=== PATIENT | female | born 1975 | race Caucasian/White ===

== ENCOUNTER 2016-12-28 07:29 | Day surgery (SDC) | payer OTHER ==
[2016-12-28] MEDS ORDERED: METHYLENE BLUE 1% 1ML VIAL SUB-Q ONE (07:30)
[2016-12-28] MEDS ORDERED: LACTATED RINGERS 1,000 ML ONE ×2 (07:56→14:41)
[2016-12-28] MEDS ORDERED: IV START KIT ONE (07:57)
[2016-12-28] MEDS ORDERED: FENTANYL 100 MCG/2 ML VIAL ONE (09:59)
[2016-12-28] MEDS ORDERED: MIDAZOLAM HCL 1 MG/ML 2ML VIAL ONE (09:59)
--- NOTE | 2016-12-28 10:10 | US ---
GUIDANCE NEEDLE PLACMNT COMPARISON: Left breast ultrasound, 12/23/2016 HISTORY: Painful lymph node lateral margin of the left breast at 3:00 status post biopsy with marker placement 07/17/2015. Procedure: The risks and benefits were explained informed consent was obtained. The skin of the left breast was sterilized with ChloraPrep. Lidocaine 1% was used for local anesthetic. Under ultrasound guidance, a 5 cm Kopan's needle was advanced toward the lesion. Once the needle was adjacent to the lesion, methylene blue dye was injected, followed by deployment of the wire. IMPRESSION: 1. Digital mammography guided wire localization of suspicious lesion in the left breast.
[2016-12-28] MEDS ORDERED: PROPOFOL 40 ML IV ONE (10:30)
[2016-12-28] MEDS ORDERED: KETAMINE HCL UD SYRINGE 100 MG/2 ML IV ONE (10:30)
[2016-12-28] MEDS ORDERED: LIDOCAINE 1% (PRES FREE) 30 ML VIAL ONE (11:10)
[2016-12-28] MEDS ORDERED: KETOROLAC TROMETHAMINE 30 MG/ML 1 ML VIAL ONE (12:02)
[2016-12-28] MEDS ORDERED: DEXAMETHASONE SOD PHOS 4 MG/1 ML VIAL ONE (12:02)
[2016-12-28] MEDS ORDERED: ONDANSETRON 4 MG/2ML 2 ML VIAL ONE ×2 (12:02→14:18)
[2016-12-28] MEDS ORDERED: PROPOFOL 20 ML IV ONE (12:05)
--- NOTE | 2016-12-28 12:41 | PCMBPN ---
Brief Post Op Note: Date of Procedure: 12/28/16 Start Time: Preoperative Diagnosis: 1. LEft breast pain and mass Postoperative Diagnosis: 1. Same Procedure: Excisional biopsy left breast mass Surgeon: Virginia Barahona MD Assist:Perri Aviles Anesthesia: MAC w/ local Findings: see dictation Condition: stable Complications: none IV Fluids: see anesthesia report Urine Output: not recorded Estimated Blood Loss: 5 mLs Tourniquet Time: N/A Specimens: left breast mass Implants: none Drains: N/A
[2016-12-28] MEDS ORDERED: HYDROMORPHONE HCL 1 MG/ML SYRINGE IV PRN (12:59)
[2016-12-28] MEDS ORDERED: LACTATED RINGERS 1,000 ML IV SCH (12:59)
[2016-12-28] MEDS ORDERED: OXYCODONE/ACETAMINOPHEN 5/325 MG TABLET PO PRN (12:59)
[2016-12-28] MEDS ORDERED: ONDANSETRON 4 MG/2ML 2 ML VIAL IV PRN (12:59)
--- NOTE | 2016-12-28 13:49 | MAMM ---
SPECIMEN FILM - IV COMPARISON: Ultrasound of the left breast, 12/23/2016 and ultrasound-guided are localization of the left breast 12/28/2016 HISTORY: Specimen radiographs from lumpectomy, left breast at 3:00 FINDINGS: Views: 2 specimens were submitted, 2 views each. /Mass: The lymph node with biopsy marker is present in the second smaller specimen. IMPRESSION: The targeted lymph node from 3:00 in the left breast is in the second, smaller specimen.
--- NOTE | 2016-12-28 15:03 | OP ---
MONTSE CUNHA [id number] : 1975 DATE OF SERVICE: December 28, 2016 PREOPERATIVE DIAGNOSIS: Left breast mass with breast pain. POSTOPERATIVE DIAGNOSIS: Left breast mass with breast pain. PROCEDURE PERFORMED: LEFT BREAST EXCISIONAL BIOPSY WITH NEEDLE LOCALIZATION. SURGEON: Virginia Barahona M.D. SUPERVISOR SHUTTLE FITTING: Pardeep Boogie ANESTHESIA: Monitored anesthesia care with local anesthetic. FINDINGS: First specimen did not have the clip in it. The second specimen did. TECHNIQUE: The patient was brought back to the operating room and placed under monitored anesthesia care. The left breast was prepped and draped in sterile surgical fashion. Local anesthetic was placed around where the wire was entering the skin and a #15 blade scalpel was used to open the skin around the wire so the wire was freed up. The incision made was about 2 to 3 cm in length and followed the skin lines. Almost immediately I started removing fatty tissue around the wire to make sure I had adequate specimen as the wire was not in very far and went to the chest wall. I used a hemostat to secure the wire to the fatty tissue, and I used a Metzenbaum scissor to open the tissue around the wire and get adequate specimen. I felt like I had a good specimen. I got most of the blue dye around the tissue, and then I placed it in the specimen container and sent it off to radiology to see if the clip was in the specimen. Then I felt the cavity and I felt a hard lump still right on the chest wall so I felt I needed to remove this as well, and I removed that and I set it aside. They did not find a clip in the original specimen, so I sent the second specimen to radiology for imaging, and the clip was in the second specimen. While I was waiting for the imaging results, I examined the cavity and there was nothing else aberrant that I found that I could remove. Everything appeared fine. So then I used electrocautery for hemostasis, irrigated the cavity out. I cut a little bit of the skin out as I damaged the skin with electrocautery on my way in. Then I closed the deep dermis with #3-0 Vicryl and closed the skin with #4-0 Monocryl and used skin glue for dressing. The patient was awakened and returned to recovery in stable condition. All needle, instrument and sponge counts were correct at the end of the case.
--- NOTE | 2016-12-30 13:54 | SURGPATH ---
[facility] [address] [place] [id number] Patient Name: MONTSE CUNHA MR#: [id number] : 1975 Gender: F Specimen #: [id number] Collected: 12/28/2016 Received: 12/29/2016 Reported: 12/30/2016 Submitting Phys: CHRISTOPHER SOTO Copy To Phys: RAD[facility] Clinical History / Pre-Operative Diagnosis: LEFT BREAST MASS Specimen Source / Surgical Procedure Performed: LEFT BREAST MASS Intraoperative Consult: Time of fixation, 9.5 hours. Interpretation: BREAST, LEFT, EXCISION: - BENIGN FIBROADIPOSE TISSUE - ONE BENIGN LYMPH NODE Electronically Signed Out Rigo Izaguirre M.D. Gross Description: The specimen is received in a formalin filled container labeled with the patient's name and "left breast mass". Two unoriented lobular biopsies of yellow-johnson, fibrofatty tissue are 1.3 x 1.2 x 0.7 cm and 3.0 x 2.5 x 1.2 cm and together 4 g. The fragments each have blue staining and the larger has a needle sheet layer wire . The surgical margins are inked black. Sectioning reveals no nodule or induration. The smaller fragment contains a radio-opaque marker. Entirely submitted. A-smaller fragment (four sections) B-D-larger fragment submitted sequentially with two sections in each cassette save for cassette D Klever Martin Microscopic Description: Sections from the smaller segment of tissue show a benign lymph node surrounded by adipose tissue. The larger segment of tissue shows benign fibroadipose tissue. There is scant breast ductal or lobular tissue present. 1: [id number] N60.92
== END 2016-12-28 16:15 | disposition home or self-care (01) ==
LOC: SDC 07:29
PROVIDERS: ATTEND Surgery
PROC: 0HBU0ZX Excision of Left Breast, Open Approach, Diagnostic (ICD-10-PCS; principal; 2016-12-28)
DX: N60.92 Unspecified benign mammary dysplasia of left breast (principal); N64.4 Mastodynia; F41.9 Anxiety disorder, unspecified
CPT/HCPCS: 19101; 76098; 76942; J3010; J1100; J1885; J2250; J2001; J2405 ×2; J7120 ×2